=== PATIENT | male | born 1940 ===

== ENCOUNTER → 2021-09-18 09:33 | Outpatient (CLI) | payer MEDICARE, SELFPAY ==
[2021-09-18 18:24] LABS: Add Manual Diff / Slide Review NO; Basophils Absolute Auto 0 /uL (0-100); Eosinophils Absolute Auto 200 /uL (0-450); Eosinophils Percent Auto 4.7 % (2-4); Hematocrit 39.5 % (41-53); Hemoglobin 13.7 g/dL (13.5-17.5); Lymphocytes Absolute Auto 1200 /uL (1100-4500); Lymphocytes Percent Auto 28.4 % (25-40); Mean Corpuscular HGB Conc 34.8 % (30-36); Mean Corpuscular Hemoglobin 31.8 PG (26-34); Mean Corpuscular Volume 91.5 fL (80-100); Monocytes Absolute Auto 400 /uL (0-900); Monocytes Percent Auto 10.6 % (3-14); Neutrophils Absolute Auto 2300 /uL (1500-7000); Neutrophils Percent Auto 55.3 % (50-75); Platelet Count 161 X10^3/uL (150-400); Red Blood Cell Count 4.31 X10^6/uL (4.5-5.9); Red Cell Distribution Width 14.1 % (11.6-14.8); White Blood Cell Count 4.2 X10^3/uL (4.5-11.0)
[2021-09-18 18:28] LABS: Alanine Aminotransferase 22 IU/L (<50); Albumin 4.1 g/dL (3.5-5.0); Albumin Globulin Ratio 1.6 (1.0-2.8); Alkaline Phosphatase 73 U/L (38-126); Aspartate Aminotransferase 35 IU/L (17-59); Blood Urea Nitrogen 16 mg/dL (9-20); Calcium 9.7 mg/dL (8.4-10.2); Carbon Dioxide 27 mmol/L (22-32); Chloride 100 mmol/L (98-107); Cholesterol 140 mg/dL (140-199); Estimated Glomerular Filt Rate > 60 mL/min (>60); Globulin 2.6 g/dL (1.7-4.1); Glucose 98 mg/dL (80-110); HDL Cholesterol 75 mg/dL (40-60); HEMOLYSIS < 15 (0-50); LDL Cholesterol Calculated 46 mg/dL (<100); Potassium 4.5 mmol/L (3.4-5.1); Sodium 133 mmol/L (137-145); Total Protein 6.7 g/dL (6.3-8.2); Triglycerides 95 mg/dL (35-150)
[2021-09-18 18:40] LABS: NT-proBNP (BNP-Adult 18+) 1870 pg/mL (<450)
[2021-09-18 19:01] LABS: Prostate Specific Antigen Scrn 0.514 ng/mL (0.1-4.0)
[2021-09-18 19:04] LABS: Thyroid Stimulating Hormone 2.62 uIU/mL (0.47-4.68)
[2021-09-18 19:39] LABS: Vitamin B12 278 pg/mL (239-931)
[2021-09-23 14:08] LABS: Alpha-1-Globulin 0.2 g/dL (0.0-0.4); Alpha-2-Globulin 0.5 g/dL (0.4-1.0); Gamma Globulin 1.2 g/dL (0.4-1.8); Globulin Total 2.6 g/dL (2.2-3.9); Protein, Total 6.6 g/dL (6.0-8.5)
== END ==
PROVIDERS: PCP Family Medicine; Visit Provider Family Medicine
DX: E78.2 Mixed hyperlipidemia (principal); F32.9 Major depressive disorder, single episode, unspecified; F43.12 Post-traumatic stress disorder, chronic; I10 Essential (primary) hypertension; I25.119 Atherosclerotic heart disease of native coronary artery with unspecified angina pectoris; I42.1 Obstructive hypertrophic cardiomyopathy; R26.89 Other abnormalities of gait and mobility; Z95.810 Presence of automatic (implantable) cardiac defibrillator; Z12.5 Encounter for screening for malignant neoplasm of prostate; R61 Generalized hyperhidrosis
CPT/HCPCS: 80053; 80061; 82607; 83880; 84155; 84165; 84443; 85025; G0103

== ENCOUNTER → 2021-10-22 12:08 | Outpatient (CLI) | payer MEDICARE, SELFPAY ==
[2021-10-22 20:28] LABS: Add Manual Diff / Slide Review NO; Basophils Absolute Auto 100 /uL (0-100); Basophils Percent Auto 1.4 % (0-2); Eosinophils Absolute Auto 100 /uL (0-450); Eosinophils Percent Auto 2.8 % (2-4); Hematocrit 37.7 % (41-53); Hemoglobin 12.9 g/dL (13.5-17.5); Lymphocytes Absolute Auto 1000 /uL (1100-4500); Lymphocytes Percent Auto 24.5 % (25-40); Mean Corpuscular HGB Conc 34.2 % (30-36); Mean Corpuscular Hemoglobin 31.5 PG (26-34); Mean Corpuscular Volume 92.2 fL (80-100); Monocytes Absolute Auto 400 /uL (0-900); Monocytes Percent Auto 10.4 % (3-14); Neutrophils Absolute Auto 2500 /uL (1500-7000); Neutrophils Percent Auto 60.9 % (50-75); Platelet Count 170 X10^3/uL (150-400); Red Blood Cell Count 4.09 X10^6/uL (4.5-5.9); Red Cell Distribution Width 14.1 % (11.6-14.8); White Blood Cell Count 4.2 X10^3/uL (4.5-11.0)
[2021-10-22 20:45] LABS: HEMOLYSIS < 15 (0-50); Iron 134 ug/dL (49-181)
[2021-10-22 20:59] LABS: Percent Iron Saturation 40 % (20-50); Total Iron Binding Capacity 338 ug/dL (261-462); Transferrin 250 mg/dL (206-381)
[2021-10-23 04:39] LABS: Alanine Aminotransferase 23 IU/L (<50); Albumin Globulin Ratio 1.6 (1.0-2.8); Alkaline Phosphatase 64 U/L (38-126); Aspartate Aminotransferase 74 IU/L (17-59); BUN Creatinine Ratio 21.2 (6-22); Bilirubin Total 0.8 mg/dL (0.2-1.3); Blood Urea Nitrogen 18 mg/dL (9-20); Calcium 9.3 mg/dL (8.4-10.2); Carbon Dioxide 28 mmol/L (22-32); Chloride 98 mmol/L (98-107); Estimated Glomerular Filt Rate > 60 mL/min (>60); Globulin 2.5 g/dL (1.7-4.1); Glucose 95 mg/dL (80-110); HEMOLYSIS < 15 (0-50); Potassium 4.8 mmol/L (3.4-5.1); Sodium 132 mmol/L (137-145); Total Protein 6.5 g/dL (6.3-8.2)
[2021-10-23 05:29] LABS: Vitamin B12 252 pg/mL (239-931)
[2021-10-24 16:53] LABS: Osmolality Urine 451 mOsmol/kg (.); Osmolality, Serum 276 mOsmol/kg (280-301)
== END ==
PROVIDERS: PCP Family Medicine; Visit Provider Family Medicine
DX: E87.1 Hypo-osmolality and hyponatremia (principal); I42.1 Obstructive hypertrophic cardiomyopathy; R79.89 Other specified abnormal findings of blood chemistry; E78.2 Mixed hyperlipidemia; I10 Essential (primary) hypertension; I25.119 Atherosclerotic heart disease of native coronary artery with unspecified angina pectoris; R26.89 Other abnormalities of gait and mobility; R61 Generalized hyperhidrosis
CPT/HCPCS: 80053; 82607; 83540; 83550; 83930; 83935; 85025

== ENCOUNTER → 2021-10-24 09:18 | Outpatient (CLI) | payer MEDICARE, SELFPAY ==
[2021-10-24 18:49] LABS: Sodium Urine Random 34 mmol/L (30-90)
[2021-10-24 22:27] LABS: Collection Time Urine 24 Hours; Sodium 24 Hour Urine 122 mmol/day (40-220); Total Volume Urine 3600 mL
== END ==
PROVIDERS: PCP Family Medicine; Visit Provider Family Medicine
DX: E87.1 Hypo-osmolality and hyponatremia (principal); I42.1 Obstructive hypertrophic cardiomyopathy; R79.89 Other specified abnormal findings of blood chemistry
CPT/HCPCS: 84300

== ENCOUNTER → 2021-11-06 09:45 | Outpatient (CLI) | payer MEDICARE, SELFPAY ==
[2021-11-07 03:12] LABS: Cortisol AM (Before 10AM) 11.6 ug/dL (4.46-22.7)
== END ==
PROVIDERS: PCP Family Medicine; Visit Provider Family Medicine
DX: E87.1 Hypo-osmolality and hyponatremia (principal)
CPT/HCPCS: 82533; 84588

== ENCOUNTER → 2021-11-18 11:26 | Outpatient (CLI) | payer MEDICARE, SELFPAY | PROVIDERS: PCP Family Medicine; Visit Provider Family Medicine | DX: D64.9 Anemia, unspecified (principal) | CPT/HCPCS: 82274 ==